=== PATIENT | male | born 1985 | race Native Hawaiian/Other Pacific Islander ===

== ENCOUNTER 2019-12-25 13:51 | Outpatient (CLI) | payer BC, OTHER | END 2019-12-25 21:48 | disposition home or self-care (01) | LOC: RAD 13:51 | DX: R05 Cough (principal) ==

== ENCOUNTER 2021-04-04 16:59 | Emergency (ER) | payer BC ==
[~2021-04-04] VITALS: Ht 188 cm; Wt 136.1 kg
[2021-04-04 18:02] LABS: PLATELET COUNT 290 K/uL (142-355)
[2021-04-04 18:14] LABS: POTASSIUM 4.6 mmol/L (3.6-5.2); SODIUM 141 mmol/L (136-145)
[2021-04-04 18:28] LABS: PARTIAL THROMBOPLASTIN TIME 24.6 SECONDS (24.5-33.6)
[2021-04-04 19:47] VITALS: BP 142/92; TEMP 98.5
== END 2021-04-04 19:47 | disposition home or self-care (01) ==
LOC: ED 16:59
PROVIDERS: Hospitalist
DX: R55 Syncope and collapse (principal); E86.0 Dehydration; J32.9 Chronic sinusitis, unspecified
CPT/HCPCS: 80053; 80320; 82550; 82553; 83880; 84484; 85027; 85610; 85730; 96360; 96365; 96367; 96375; 99284; J0696; J2405

== ENCOUNTER 2021-09-26 07:53 | Outpatient (CLI) | payer BC | END 2021-09-26 19:23 | disposition home or self-care (01) | LOC: CT 07:53 | PROVIDERS: ATTEND Nurse Practitioner Primary Care | DX: R10.32 Left lower quadrant pain (principal) | CPT/HCPCS: 36415; 82565; 84520; Q9963 ==